=== PATIENT | male | born 1985 | race Caucasian/White ===

== ENCOUNTER 2018-07-17 18:34 | Emergency (ER) | payer OTHER ==
[~2018-07-17] VITALS: Ht 165.1 cm; Wt 66.3 kg
[2018-07-17 18:37] VITALS: BP 133/70; PULSE 85; RESP 19; Ht 165.1 cm; Wt 66.3 kg
[2018-07-17] MEDS ORDERED: IBUPROFEN 600 MG TAB PO ONE (22:00)
[2018-07-17] MEDS ORDERED: HYDROCODONE/APAP (5/325) TAB PO ONE (22:00)
[2018-07-18] MEDS ORDERED: IBUP-1542 PO (00:41)
[2018-07-18] MEDS ORDERED: HYDR-4011 PO (00:41)
--- NOTE | 2018-07-18 00:44 | ERD ---
ER Documentation Chief Complaint Chief Complaint LEFT 2ND FINGER; S/P [facility] DUE TO SKATEBOARDING [employer] HPI 33-year-old male fell off his rollerblade 3 days ago. He sustained an injury to his left index finger with deformity. He has no bleeding, redness, fevers. Denies any other injury other than his left index finger. ROS All systems reviewed and are negative except as per history of present illness. Medications Home Meds Active Scripts Ibuprofen* (Motrin*) 600 Mg Tab, 600 MG PO Q6, #20 TAB Prov:EDINSON HENRY MD 07/18/18 Hydrocodone/Acetaminophen (Artemus 5-325 Tablet) 1 Each Tablet, 1 TAB PO Q6H PRN for PAIN, #12 TAB Prov:EDINSON HENRY MD 07/18/18 Allergies Allergies: Coded Allergies: No Known Allergy (Unverified , 07/17/18) PMhx/Soc Medical and Surgical Hx: pt denies Medical Hx, pt denies Surgical Hx Hx Alcohol Use: No Hx Substance Use: No Hx Tobacco Use: No Smoking Status: Never smoker FmHx Family History: No diabetes, No coronary disease, No other Physical Exam Vitals Vital Signs Date Temp Pulse Resp B/P (MAP) Pulse Ox O2 O2 Flow FiO2 Time Delivery Rate 07/17/18 98.2 85 19 133/70 99 18:37 (91) Physical Exam Const: No acute distress Head: Atraumatic Eyes: Normal Conjunctiva ENT: Normal External Ears, Nose and Mouth. Neck: Full range of motion. No meningismus. Resp: Clear to auscultation bilaterally Cardio: Regular rate and rhythm, no murmurs Abd: Soft, non tender, non distended. Normal bowel sounds Skin: No petechiae or rashes Back: No midline or flank tenderness Ext: No cyanosis, or edema. Noticeable deformity in the left proximal index finger. Cap refill is less than 2 seconds. No restricted range of motion weakness or deficits although limited due to deformity and pain. Neur: Awake and alert Psych: Normal Mood and Affect Results 24 hrs Current Medications Medications Dose Sig/Stephen Start Time Status Last (Trade) Ordered Route PRN Stop Time Admin Dose Reason Admin 1 tab ONCE ONCE 07/17/18 DC 07/17/18 Acetaminophen PO 22:00 22:22 / 3/17/19 22:01 Hydrocodone Bitart (Artemus (5/325)) Ibuprofen 600 mg ONCE ONCE 07/17/18 DC 07/17/18 (Motrin) PO 22:00 22:22 07/17/18 22:01 Procedures/MDM X-ray Finger 2V Interpreted by me: Bones: Fracture of the left index finger proximal phalanx with dorsal angulation. Joints: No dislocation Foreign body: None impression-comminuted left proximal index finger fracture with dorsal angulation She was given Artemus and ibuprofen for pain. Via sterile technique 3 cc of lidocaine was used perform a digital block. Reduction was attempted in satisfactory anatomic alignment was obtained although deformity return to its original position upon rest. Postreduction x-rays showed persistent dorsal angulation of comminuted fracture. Patient was placed in a left middle splint with traction to improve anatomic reduction. Resents with a proximal comminuted left index finger fraction with persistent deformity despite reduction. Patient be discharged home with orthopedic and hand surgery follow-up in the next week. Return sooner for fevers, redness, new worsening symptoms. Patient was advised he may need authorization from primary doctor for orthopedist visit. Patient was counseled on risk of permanent deformity or limited use of left index finger without proper definitive treatment. Currently no signs or symptoms of ischemia, deficits, infection. Departure Diagnosis: Primary Impression: Finger fracture Encounter type: initial encounter Finger: index finger Fracture type: closed Phalanx: proximal Fracture alignment: displaced Laterality: left Qualified Codes: S62.611A - Displaced fracture of proximal phalanx of left index finger, initial encounter for closed fracture Condition: Stable Patient Instructions: Fracture, Finger (Closed) Referrals: BENEDICT GORDON MD [facility] Additional Instructions: See orthopedist or specialist for further evaluation of fracture in the next week. May need to be pain to keep in place. Recheck for fevers, redness, new worsening symptoms otherwise. EDINSON HENRY MD Jul 18, 2018 00:44
== END 2018-07-18 01:45 | disposition home or self-care (01) ==
LOC: FTE 18:34
DX: S62.611A Displaced fracture of proximal phalanx of left index finger, initial encounter for closed fracture (principal); V00.131A Fall from skateboard, initial encounter; Y92.9 Unspecified place or not applicable
CPT/HCPCS: 29130; 73140; Z7502; Z7610